=== PATIENT | female | born 1975 | race Two or more races ===

== ENCOUNTER 2019-07-13 07:00 | Day surgery (SDC) | payer OTHER ==
[~2019-07-13 07:00] MED LIST: ALLEGRA ALLERG180 MG PO; AMBIEN10 MG PO; CALCIUM 500 +1 EAC2 PO; COLACE100 MG PO; JANUMET 50-5001 EACH PO; MAGNESIUM400 MG PO; PRISTIQ ER100 MG PO; TOPAMAX50 MG PO; TOPROL XL25 MG PO; VITAMIN D35000 UNI2 PO
== END 2019-07-13 15:58 | disposition home or self-care (01) ==
LOC: CIR.AMB 07:00
DX: D24.2 Benign neoplasm of left breast (principal)